=== PATIENT | male | born 1990 | race Caucasian/White ===

== ENCOUNTER 2016-12-08 13:52 | Emergency (ER) | payer MEDICAID ==
[2016-12-08 14:11] VITALS: BP 147/86; PULSE 82; RESP 15; TEMP 98.2; O2SAT 96
--- NOTE | 2016-12-08 14:37 | UCPHY ---
H & P Time Seen by Provider: 12/08/16 14:04 Patient Type: New HPI/ROS: This patient has a sore throat that started today he notices it when he swallows food or toxin describes the pain as mild. He has moderate right anterior cervical pain associated with the symptoms. He feels there is slight swelling to this area. ROS: No fevers or chills. No other constitutional symptoms. HEENT: Mild coryza. No ear pain. Pulmonary: No cough GI: No vomiting 7 point ROS is otherwise negative. Past Medical/Surgical History: Otherwise healthy Smoking Status: Never smoked Physical Exam: Physical Exam Vital signs are normal. General: No acute distress HEENT: Atraumatic. Nose: Clear. oropharynx: No erythema or exudates or dysphonia. Ears: External canals and TMs clear bilaterally. Neck: Patient has mild right anterior cervical lymphadenopathy with tenderness. No overlying erythema. No fluctuant lesions. No meningismus. Eyes: Pupils equal and react to light. Extraocular motions are intact. Lungs: Clear to auscultation bilaterally. No respiratory distress. Cardiac: Regular rate and rhythm with no murmur gallop or rub. Belly: Soft nontender with no splenomegaly Skin: No rash or pallor. Neuro: Alert with no sensorimotor deficits. Initial differential diagnosis: Viral pharyngitis versus strep pharyngitis Constitutional: Initial Vital Signs Temperature (C) 36.8 C 12/08/16 14:06 Heart Rate 82 12/08/16 14:06 Respiratory Rate 15 12/08/16 14:06 Blood Pressure 147/86 H 12/08/16 14:06 O2 Sat (%) 96 12/08/16 14:06 O2 Delivery Mode Room Air Allergies/Adverse Reactions: No Known Allergies Allergy (Unverified 12/08/16 14:05) Home Medications: Medication Instructions Recorded NK [No Known Home Meds] 12/08/16 Medical Decision Making - Data Points Laboratory Results: 12/08/16 12/08/16 Unknown 14:03 Group A Strep Screen NEGATIVE (NEGATIVE) Group A Strep DNA Pending Departure - Departure Disposition: Home, Routine, Self-Care Clinical Impression: Viral pharyngitis, Cervical lymphadenopathy Condition: Good Instructions: Pharyngitis (ED) Additional Instructions: Diagnosis: 1. Viral pharyngitis 2. Cervical lymphadenopathy Plan: Ibuprofen-600 mg per 6 hours as needed for neck pain or throat pain. Drink plenty fluids Your symptoms should gradually improve sometime over the next 5-10 days. Return for any significant worsening despite the treatment plan Referrals: NONE *PRIMARY CARE P,. [Primary Care Provider] - As per Instructions - PQRS PQRS Measurement: NA
== END 2016-12-08 14:41 | disposition home or self-care (01) ==
LOC: CED 13:52
DX: J02.8 Acute pharyngitis due to other specified organisms (principal); R59.0 Localized enlarged lymph nodes; M54.2 Cervicalgia
CPT/HCPCS: 87880-PO; G0463-PO